=== PATIENT | male | born 1950 | race Caucasian/White ===

== ENCOUNTER 2018-06-19 06:01 | Day surgery (SDC) | payer MEDICARE, BC ==
--- NOTE | 2018-06-14 09:24 | HP ---
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 He had a colonoscopy about 2 years ago and this has persisted after the colonoscopy. He had a hemorrhoidectomy 18 years ago in [place]. He denies having any pain. Exam today reveals small internal hemorrhoids, but several varicosities perianal that are causing his bleeding. There is no evidence historically or physical exam for an anal fissure. Plan is for exam under anesthesia and external hemorrhoidectomy. He understands the risks and benefits and consents. We will schedule this third week in May 2018. ALLERGIES: NONE. SOCIAL HISTORY: Tobacco, none. Alcohol, none. PAST SURGICAL HISTORY: Eighteen years ago, hemorrhoidectomy; two years ago, colonoscopy; right knee surgery; and right foot surgery. PAST MEDICAL HISTORY: Hypertension, mild GERD. MEDICATIONS: 1. Lisinopril 20 mg b.i.d. 2. Doxazosin 4 mg a day. 3. Omeprazole 40 mg a day. 4. Meloxicam 7.5 mg a day. 5. Cyclobenzaprine 10 mg p.r.n. 6. Advil p.r.n. 7. Aleve p.r.n. ALLERGIES: NONE. PHYSICAL EXAMINATION: VITAL SIGNS: Weight 249 pounds. Blood pressure 186/87, pulse 66, and temperature 98.4 degrees. NEUROLOGICAL: Intact. No deficit. No lymphadenopathy of neck, axilla, and groins. No edema of ankles. CARDIAC: Regular rate and rhythm without murmur or gallop. ABDOMEN: Soft and nontender. No abdominal masses. LUNGS: Clear to auscultation. EXTREMITIES: Unremarkable. RECTAL: Perianal area reveals varicosities of perianal. Then, when examining him, there was some bleeding posteriorly. Anoscopy reveals small internal hemorrhoids. There is no evidence of an anal fissure. ASSESSMENT: Perianal varicosities, external hemorrhoids. PLAN: Excision. I do not think he needs a full hemorrhoidectomy. Only attention to the bleeding problematic varicosities perianal. He understands the risks and benefits and consents. Job ID: [id number]
[2018-06-18 13:32] VITALS: BMI 33.9
[2018-06-19] MEDS ORDERED: Fentanyl 100 MCG/2 ML VIAL ONE (06:22)
[2018-06-19] MEDS ORDERED: Lidocaine 2% PF 5 ML VIAL ONE (06:38)
[2018-06-19] MEDS ORDERED: Lidocaine 2% Jelly 5 ML TUBE ONE (06:38)
[2018-06-19] MEDS ORDERED: Bupivacaine HCl 0.5%/Epinephrine 1:200,000/PF 30 ml Vial ONE (06:38)
[2018-06-19 06:40] LABS: #Eosinphils 0.1 thou/uL (0.0-0.7); #Lymphocytes 1.4 thou/uL (1.20-3.40); #Monocytes 0.5 thou/uL (0.11-0.59); #Neutrophils 4.6 thou/uL (1.40-6.50); %Basophils 0.4 % (0.0-1.0); %Eosinophils 1.4 % (0.0-10.0); %Lymphocytes 21.6 % (21.0-51.0); %Monocytes 6.8 % (0.0-10.0); %Neutrophils 69.9 % (42.0-75.0); Hemoglobin 13.9 g/dL (14.0-18.0); Mean Corpuscular HGB CONC 32.6 g/dL (32.0-36.0); Mean Corpuscular Hemoglobin 29.7 pg (27.0-31.0); Mean Corpuscular Volume 90.9 fL (78.0-98.0); Mean Platelet Volume 7.2 fL (7.4-10.4); Platelet Count 211 thou/uL (130-400); RBC Distribution Width 11.8 % (11.5-14.5); Red Blood Cell (RBC) Count 4.68 mill/uL (4.70-6.10); White Blood Cell (WBC) Count 6.6 thou/uL (4.8-10.8)
[2018-06-19] MEDS ORDERED: Ketorolac Tromethamine 30 MG/ML VIAL ONE (06:40)
[2018-06-19] MEDS ORDERED: cefOXitin Sodium/Dextrose,Iso 2 GM in Premix Bag 1 BAG IVPB SCH (06:45)
[2018-06-19 07:23] LABS: Anion Gap 10 mmol/L (10-20); BUN (Urea Nitrogen) 13 mg/dL (8.4-25.7); Calc. Creatinine Clearance 97 mL/min (70-130); Calcium 8.8 mg/dL (7.8-10.44); Carbon Dioxide 29 mmol/L (23-31); Chloride 103 mmol/L (98-107); Estimated GFR-MDRD 62; Glucose 88 mg/dL (80-115); Potassium 3.9 mmol/L (3.5-5.1); Sodium 138 mmol/L (136-145)
[2018-06-19] MEDS ORDERED: ePHEDrine 50 MG/ML VIAL ONE (09:55)
[2018-06-19] MEDS ORDERED: Ondansetron PF 4 MG/2 ML Vial ONE (09:55)
[2018-06-19] MEDS ORDERED: Lidocaine 1% PF 5 ML VIAL ONE (09:55)
[2018-06-19] MEDS ORDERED: PROPOFOL 200 MG/20 ML VIAL ONE (09:55)
[2018-06-19] MEDS ORDERED: Dexamethasone 20 MG/5 ML VIAL ONE (09:55)
--- NOTE | 2018-06-19 13:02 | OP ---
DATE OF PROCEDURE: 06/19/2018 PREOPERATIVE DIAGNOSIS: Bleeding hemorrhoids, bothersome with prior history of hemorrhoidectomy many years ago. POSTOPERATIVE DIAGNOSIS: Bleeding hemorrhoids, bothersome with prior history of hemorrhoidectomy many years ago. PROCEDURES PERFORMED: Exam under anesthesia, excision of two hemorrhoidal complex, internal and external. ANESTHESIA: General, local of 0.5% Marcaine with epinephrine 30 mL mixed with 2% Xylocaine 10 mL, 20 mL mixture used. DESCRIPTION OF PROCEDURE: The patient was taken to the operating room, where under general anesthesia in the dorsal lithotomy position, perianal area and buttocks prepared with Betadine and draped in routine fashion. Anus was examined under anesthesia. Two large hemorrhoidal complexes present, one right, one left and both excised by placing apical suture of 3-0 chromic in the lower rectum and then incision made elliptical at the perianal skin and hemorrhoidal complex excised with the LigaSure, closing the defect with continuous locking suture of 3-0 chromic. Hemostasis was noted. Posterior, there was a slight separation from the anal retractor posteriorly and this was approximated with continuous locking suture of 3-0 chromic. The patient tolerated the procedure well as local anesthetic mixture was infiltrated into the skin and subcutaneous tissue and Gelfoam roll placed. Job ID: [id number]
--- NOTE | 2018-06-21 16:34 | EKG ---
Test Reason : PREOP Blood Pressure : / mmHG Vent. Rate : 067 BPM Atrial Rate : 067 BPM P-R Int : 164 ms QRS Dur : 084 ms QT Int : 428 ms P-R-T Axes : -20 003 023 degrees QTc Int : 452 ms Normal sinus rhythm Normal ECG No previous ECGs available Confirmed by DR. Trevin MARISCAL ([id number]) on 06/21/2018 4:34:17 PM Referred By: SALAS Confirmed By:DR. Trevin MARISCAL
== END 2018-06-19 10:25 | disposition home or self-care (01) ==
LOC: SDC 06:01
PROVIDERS: ATTEND Specialist
PROC: 06BY3ZC Excision of Hemorrhoidal Plexus, Percutaneous Approach (ICD-10-PCS; principal; 2018-06-19)
DX: K64.4 Residual hemorrhoidal skin tags (principal); K64.8 Other hemorrhoids; I10 Essential (primary) hypertension; K21.9 Gastro-esophageal reflux disease without esophagitis; Z79.1 Long term (current) use of non-steroidal anti-inflammatories (NSAID); Z79.899 Other long term (current) drug therapy; Z98.890 Other specified postprocedural states
CPT/HCPCS: 36415; 80048; 85025; 88304; 93005; 93010; J0131; J0670; J1100; J1885; J2001; J2405; J2704; J3010; J3490

== ENCOUNTER 2022-11-02 12:08 | Outpatient (CLI) | payer MEDICARE | END 2022-11-02 12:09 | disposition home or self-care (01) | LOC: BICMRI 12:08 | PROVIDERS: ATTEND Psychiatry & Neurology Neurology | DX: G62.9 Polyneuropathy, unspecified (principal); M47.816 Spondylosis without myelopathy or radiculopathy, lumbar region; N28.1 Cyst of kidney, acquired | CPT/HCPCS: 72148 ==